=== PATIENT | female | born 1980 | race Caucasian/White ===

== ENCOUNTER 2020-02-18 11:27 | Emergency (ER) | payer SELFPAY ==
[~2020-02-18] VITALS: Ht 195.6 cm; Wt 99.0 kg
[2020-02-18] MEDS ORDERED: ONDANSETRON ODT 4 MG TAB.RAPDIS PO ONE (12:15)
[2020-02-18] MEDS ORDERED: ORPHENADRINE CITRATE 60 MG/2 ML VIAL. IM ONE (12:15)
[2020-02-18] MEDS ORDERED: BUTALB/APAP/CAFEIN 50/325/40MG TABLET. PO ONE (12:15)
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
[2020-02-18] MEDS ORDERED: BUTA1TAB23 PO (13:22)
[2020-02-18] MEDS ORDERED: ONDA4TAB12 PO (13:22)
[2020-02-18] MEDS ORDERED: ORPH-16 PO (13:22)
[2020-02-18 13:40] VITALS: BP 117/71
== END 2020-02-18 13:40 | disposition home or self-care (01) ==
LOC: ER 11:27
DX: S16.1XXA Strain of muscle, fascia and tendon at neck level, initial encounter (principal); F07.81 Postconcussional syndrome; F17.200 Nicotine dependence, unspecified, uncomplicated; Z88.5 Allergy status to narcotic agent; Y08.89XA Assault by other specified means, initial encounter; Y93.89 Activity, other specified; Y92.89 Other specified places as the place of occurrence of the external cause; Y99.8 Other external cause status
CPT/HCPCS: 70450; 72125; 96372; 99285; J2360; Q0162

== ENCOUNTER 2020-03-05 18:13 | Emergency (ER) | payer SELFPAY ==
[~2020-03-05] VITALS: Ht 165.1 cm; Wt 99.0 kg
[~2020-03-05 18:13] MED LIST: BUTA1TAB23 PO; ONDA4TAB12 PO; ORPH-16 PO
[2020-03-05 18:15] VITALS: BP 133/72
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
[2020-03-05] MEDS ORDERED: HYDROcodone/APAP 5/325MG 1 TAB TABLET PO ONE (18:45)
[2020-03-05] MEDS ORDERED: DIPH,PERTUSS(ACELL),TET VAC/PF 0.5 ML SYRINGE. VAX IM ONE (19:15)
--- NOTE | 2020-03-05 19:22 | RAD ---
STUDY: CT head and cervical spine without contrast INDICATION: Injury to the top of the head. COMPARISON: 02/18/2020 TECHNIQUE: Axial CT imaging through the head and cervical spine without the use of intravenous contrast. Sagittal and coronal reformats were obtained. One or more of the following individualized dose reduction techniques were utilized for this examination: 1. Automated exposure control 2. Adjustment of the mA and/or kV according to patient size 3. Use of iterative reconstruction technique. FINDINGS: CT head: No acute intracranial hemorrhage. Normal corona-white matter interface. No localized mass effect, midline shift or hydrocephalus. Scalp injury approaching the vertex with eunice. No associated depressed calvarial fracture. CT cervical spine: No acute fracture or traumatic malalignment. Redemonstrated degenerative changes greatest at C5-C6 more so than C6-C7. There is again a chronic focus of ossification along the right aspect of the C2 and C3 spinous processes with adjacent chronic deformity or developmental variation of the C2 posterior ring. No soft tissue sequela of trauma seen throughout the neck. Unremarkable thyroid. Mild paraseptal cystic change at the right lung apex. Advanced multifocal odontogenic disease. IMPRESSION: CT head: 1. Scalp injury approaching the vertex with stapling. No associated depressed calvarial fracture or acute intracranial abnormality by CT. CT cervical spine: 1. No acute fracture or traumatic malalignment. 2. No different from 02/18/2020 are degenerative changes greatest at C5-C6. 3. Multifocal odontogenic disease. Electronically signed by: ARMIDA MORLEY MD (03/05/2020 7:20 PM) [id number]
== END 2020-03-05 19:45 | disposition home or self-care (01) ==
LOC: ER 18:13
DX: S01.01XA Laceration without foreign body of scalp, initial encounter (principal); F17.210 Nicotine dependence, cigarettes, uncomplicated; F19.90 Other psychoactive substance use, unspecified, uncomplicated; Z90.89 Acquired absence of other organs; Z98.51 Tubal ligation status; Z88.5 Allergy status to narcotic agent; Z88.8 Allergy status to other drugs, medicaments and biological substances; W22.8XXA Striking against or struck by other objects, initial encounter; Y93.89 Activity, other specified; Y92.89 Other specified places as the place of occurrence of the external cause; Y99.0 Civilian activity done for income or pay
CPT/HCPCS: 12001; 70450; 72125; 90471; 90715; 99285

== ENCOUNTER 2020-03-14 17:31 | Emergency (ER) | payer OTHER ==
[~2020-03-14] VITALS: Ht 165.1 cm; Wt 99.0 kg
--- NOTE | 2020-03-14 18:11 | PHYS DOC ---
Past History Past Medical History: No Pertinent History, Other Additional Past Medical Histor: palpitations Past Surgical History: Tonsillectomy, Tubal ligation Smoking: Cigarettes Alcohol Use: None Drug Use: Methamphetamine Adult General Chief Complaint Chief Complaint: SUTURE/STAPLE REMOVAL [facility] Patient is a [age] year old female who presents with request to have her eunice removed, patient states that last she was at work and hit her head on L being causing a laceration to her scalp did not lose consciousness. Patient states she was seen here, patient states her tetanus was brought up-to-date, patient states that wound was cleansed and repaired here with eunice. Patient states that she had no problems with the eunice, and is here to have them removed. Patient denies any other complaints. Patient denies any headaches or focal weaknesses, patient denies any itching or any problems. Patient denies being exposed to the COVID-19 virus, patient does not wish to be tested today for the COVID-19 virus. Review of Systems Review of Systems Constitutional: Denies fever or chills Eyes: Denies change in visual acuity, redness, or eye pain Cardiovascular: No additional information not addressed in HPI [] Musculoskeletal: Denies back pain or joint pain [] Integument: Denies rash or skin lesions [] Neurologic: Denies headache, focal weakness or sensory changes [] All other systems were reviewed and found to be within normal limits, except as documented in this note. Allergies Allergies Allergies Coded Allergies Type Severity Reaction Last Updated Verified cephalexin Allergy Unknown 03/05/20 Yes codeine Allergy Unknown 02/18/20 Yes Physical Exam Physical Exam Constitutional: Well developed, well nourished, no acute distress, non-toxic appearance. HENT: Normocephalic, atraumatic, bilateral external ears normal, oropharynx moist, no oral exudates, nose normal. Eyes: PERRLA, EOMI, conjunctiva normal, no discharge. Neck: Normal range of motion, no tenderness, supple, no stridor. Cardiovascular:Heart rate regular rhythm, no murmur Lungs & Thorax: Bilateral breath sounds clear to auscultation Abdomen: Bowel sounds normal, soft, no tenderness, no masses, no pulsatile masses. Skin: Warm, dry, no erythema, no rash. Patient has three intact eunice on scalp, wound well-healed, edges approximated, no signs of infectious process. Back: No tenderness, no CVA tenderness. Extremities: No tenderness, no cyanosis, no clubbing, ROM intact, no edema. Neurologic: Alert and oriented X 3, normal motor function, normal sensory function, no focal deficits noted. Psychologic: Affect normal, judgement normal, mood normal. EKG EKG [] Radiology/Procedures Radiology/Procedures [] Heart Score Risk Factors: Risk Factors: DM, Current or recent (<one month) smoker, HTN, HLP, family history of CAD, obesity. Risk Scores: Risk Factors: DM, Current or recent (<one month) smoker, HTN, HLP, family history of CAD, obesity. Course & Med Decision Making Course & Med Decision Making Pertinent Labs and Imaging studies reviewed. (See chart for details) 39-year-old female presents emergency department for staple removal, patient had her eunice placed here this past , her tetanus was brought up-to-date last . Patient had no problems, today D examination revealed three eunice intact edges well approximated no signs of infection no purulent drainage wound was well-healed, eunice were removed by ED nursing staff, patient was discharged home without incident. Patient had no further questions or concerns. Dragon Disclaimer Dragon Disclaimer This electronic medical record was generated, in whole or in part, using a voice recognition dictation system. Departure Departure: Impression: Primary Impression: Removal of eunice Disposition: 01 DC HOME SELF CARE/HOMELESS Condition: GOOD Referrals: PCPADAM (PCP) Patient Instructions: Staple Removal, Care After Additional Instructions: Your wound looks well-healed, your eunice were removed today, return for worsening symptoms or other concerns. RANDAL REY APRN Mar 14, 2020 18:11
== END 2020-03-14 18:16 | disposition home or self-care (01) ==
LOC: ER 17:31
DX: S01.01XD Laceration without foreign body of scalp, subsequent encounter (principal); F17.210 Nicotine dependence, cigarettes, uncomplicated; Z88.1 Allergy status to other antibiotic agents; Z88.5 Allergy status to narcotic agent; X58.XXXD Exposure to other specified factors, subsequent encounter
CPT/HCPCS: 99281

== ENCOUNTER 2021-03-15 19:57 | Emergency (ER) | payer SELFPAY ==
[~2021-03-15] VITALS: Ht 165.1 cm; Wt 81.8 kg
--- NOTE | 2021-03-15 20:03 | PHYS DOC ---
Past History Past Medical History: No Pertinent History, Other Additional Past Medical Histor: palpitations Past Surgical History: Tonsillectomy, Tubal ligation Smoking: Cigarettes Alcohol Use: None Drug Use: Methamphetamine Adult General Chief Complaint Chief Complaint: NAUSEA/VOMITING/DIARRHEA HPI HPI Patient is a 40-year-old female, who states she is otherwise healthy who presents with a chief complaint of fatigue, body aches and fever at home to 101 for the last 2 days. States she is also had nasal congestion and nonproductive cough. States he is eating and drinking normally for her. States is making urine and stool normally for her. States she took some Tylenol earlier this morning. Denies recent traumas, travels, other illnesses, chest pain, shortness of breath, abdominal pain, vomiting. States she did have some nausea earlier which has resolved and some soft stools. Denies any trouble making urine no s tool denies any blood in either. Patient requesting Covid swab and work note. Review of Systems Review of Systems Review of systems otherwise unremarkable except noted in HPI Allergies Allergies Allergies Coded Allergies Type Severity Reaction Last Updated Verified cephalexin Allergy Unknown 03/05/20 Yes codeine Allergy Unknown 02/18/20 Yes Physical Exam Physical Exam Constitutional: Well developed, well nourished, no acute distress, non-toxic appearance. [] HENT: Normocephalic, atraumatic, bilateral external ears normal, oropharynx moist, no oral exudates, nose normal. [] Eyes: PERRLA, EOMI, conjunctiva normal, no discharge. [] Neck: Normal range of motion, no tenderness, supple, no stridor. [] Cardiovascular:Heart rate regular rhythm, no murmur [] Lungs & Thorax: Mild bilateral global rhonchi, no tachypnea or respiratory distress Abdomen: soft, no tenderness, no masses, no pulsatile masses. [] Skin: Warm, dry, no erythema, no rash. [] Back: No tenderness, no CVA tenderness. [] Extremities: No tenderness, no cyanosis, no clubbing, ROM intact, no edema. [] Neurologic: Alert and oriented X 3, no focal deficits noted. [] Psychologic: Affect normal, judgement normal, mood normal. [] EKG EKG [] Radiology/Procedures Radiology/Procedures [] Heart Score C/O Chest Pain: No Risk Factors: Risk Factors: DM, Current or recent (<one month) smoker, HTN, HLP, family history of CAD, obesity. Risk Scores: Risk Factors: DM, Current or recent (<one month) smoker, HTN, HLP, family history of CAD, obesity. Course & Med Decision Making Course & Med Decision Making Patient is a 40-year-old female who presents with concern for Covid given body aches, chills, fever, nasal congestion and cough Vital signs notable for fever. Physical exam noted above. Patient swab for Covid. Given cough medicine and ibuprofen. Patient took Tylenol before coming. Covid swab pending. Chest x-ray suggestive of right lower lobe pneumonia. Started on Levaquin in the ED. Gave education and quarantine instructions on Covid. Advised to follow-up in the morning with primary care physician. Advised to take antibiotics as prescribed. Gave symptom management for home. Gave return precautions to the ED. Patient grateful, verbalized understanding and agreed with plan of discharge. Dragon Disclaimer Dragon Disclaimer This electronic medical record was generated, in whole or in part, using a voice recognition dictation system. Departure Departure: Impression: Primary Impression: Viral syndrome Additional Impression: Pneumonia Disposition: HOME / SELF CARE / HOMELESS Condition: GOOD Referrals: PCPADAM (PCP) YINA REYEZ Patient Instructions: Viral Syndrome Additional Instructions: Thank you for coming into the emergency department tonight and allowing us to take care of you. Please read the attached information carefully to go back over some of the things we discussed. As we discussed you can swab for Covid and your results could take 24 to 48 hours to come back. Please follow quarantine procedures as we discussed. Please continue Tylenol, ibuprofen and sxqr-[id number] cough medicine as needed. You are given a work note for alan velazquez's visit. Please call your primary care physician in the morning to update on ED visit. Please come back with new or concerning symptoms as we discussed. You have been tested for or diagnosed with COVID-19. It is an infection caused by a new type of coronavirus. COVID-19 will cause cold-like or mild flu symptoms in most. It can cause more severe symptoms like problems breathing in some. There is no treatment for COVID-19. The body will clear the infection over time. Self-care will help to ease discomfort. Steps to Take: Self-Care Rest as needed. Healthy habits may help you feel better. Steps include: Choose healthy foods including fruits and vegetables. Drink water throughout the day. Get plenty of sleep each night. If you smoke, try to quit. It may ease breathing. Avoid alcohol. Keep Others Healthy The virus can spread to others. Droplets are released every time you sneeze or cough. The droplets can get into the mouth, nose, or eyes of people near you and lead to infection. To lower the chances of spreading COVID-19 to others: Stay at home until your doctor has said it is safe to leave. If you tested positive this will mean staying isolated until both of the following are true: At least 7 days have passed since the start of illness. You are free of fever for at least 72 hours without the use of medicine. During this time: - Avoid public areas, events, or transportation. Do not return to work or school until your doctor has said it is safe to do so. - Call ahead if you need to go to a medical center. Let them know you may have COVID-19. It will help them guide you where to go. They may also ask you to wear a facemask when you come to the office. - If you call for emergency medical services, let them know you may have COVID- 19. While at home: - Try to avoid close contact with others. Stay about 6 feet away. - If possible, spend most of your time in a separate room from others. - Use a face mask if you will be in close contact with others such as sharing a room or vehicle. - Have someone wipe down common surfaces in the home. Use household licensed embalmer every day on areas like doorknobs, counters, or sinks. - Cough or sneeze into a tissue. Throw the tissue away right after use. If a tissue is not available, cough or sneeze into your elbow. - Wash your hands often. Wash them after sneezing or coughing. Use soap and water and wash for at least 20 seconds. Alcohol based hand sanitation truck cleaner can be used if soap and water is not available. - Do not prepare food for others. Avoid sharing personal items like forks, spoons, or toothbrushes. - Avoid close contact with pets while you are sick. There is no evidence of the virus passing to pets. This is a safety step until more is known about this virus. Isolation can be frustrating. Social interaction can help. Keep in touch with friends and family through phone and tech options. You can still interact with others in you r home, just keep a safe distance of about 6 feet. Follow-up: Your doctors office will check in with you to see if there are any changes in your health. You may be asked to keep track of symptoms to share with them. They will also let you know when you are clear to be in public again. Problems to Look Out For: Contact your doctor if your recovery is not going as you expect. Get emergency care if you have problems such as: - Trouble breathing - Nonstop chest pain or pressure - Changes in awareness, confusion, or problems waking - Lips or face have bluish color - Worsening of symptoms If you think you have an emergency, call for emergency medical services right away. As taken from [facility] Levofloxacin (LEVOFLOXACIN) 500 Mg Tablet 1 TAB PO DAILY for PNA for 6 Days, #6 TAB Prov: TOYA BENTON MD 03/15/21 Problem Qualifiers TOYA BENTON MD Mar 15, 2021 20:03
[2021-03-15] MEDS ORDERED: guaiFENesin DM 200MG/20MG 10 ML SYRUP PO ONE (20:30)
[2021-03-15] MEDS ORDERED: ONDANSETRON 4MG ODT 4TABLET STARTPACK. PO ONE (20:30)
[2021-03-15] MEDS ORDERED: IBUPROFEN 600 MG TABLET. PO ONE (20:30)
[2021-03-15] MEDS ORDERED: LEVO500T9 PO (20:52)
[2021-03-15] MEDS ORDERED: levoFLOXacin 500 MG TABLET PO ONE (21:00)
[2021-03-15 21:06] VITALS: BP 110/75
--- NOTE | 2021-03-15 21:26 | RAD ---
Exam: Chest one view INDICATION: Cough, fever TECHNIQUE: Frontal view of the chest Comparisons: None FINDINGS: The cardiomediastinal silhouette and pulmonary vessels are within normal limits. Patchy right basilar airspace disease. No pleural effusion. IMPRESSION: Right patchy basilar airspace disease may be infectious or inflammatory in etiology. Electronically signed by: Amarjit Doyle MD (03/15/2021 9:24 PM) DENISE
== END 2021-03-15 21:10 | disposition home or self-care (01) ==
LOC: ER 19:57
DX: J18.9 Pneumonia, unspecified organism (principal); B34.9 Viral infection, unspecified; Z20.822 Contact with and (suspected) exposure to COVID-19; F17.210 Nicotine dependence, cigarettes, uncomplicated; Z88.1 Allergy status to other antibiotic agents; Z88.5 Allergy status to narcotic agent
CPT/HCPCS: 71045; 99284; C9803; Q0162; U0003

== ENCOUNTER 2021-05-26 22:03 | Emergency (ER) | payer SELFPAY ==
[~2021-05-26] VITALS: Ht 165.1 cm; Wt 77.3 kg
[~2021-05-26 22:03] MED LIST changes: +LEVO500T9 PO
[2021-05-26] MEDS ORDERED: START PACK - traMADol 1 STARTPACK TABLET PO ONE (22:30)
[2021-05-26] MEDS ORDERED: CLIN-95 PO (22:30)
[2021-05-26] MEDS ORDERED: CLINDAMYCIN HCL 150 MG CAPSULE PO ONE (22:30)
--- NOTE | 2021-05-26 22:30 | PHYS DOC ---
Past History Past Medical History: No Pertinent History, Other Additional Past Medical Histor: palpitations Past Surgical History: Tonsillectomy, Tubal ligation Smoking: Cigarettes Alcohol Use: None Drug Use: Methamphetamine General Adult EDM: Chief Complaint: DENTAL PROBLEM HPI: HPI: Patient is a 40-year-old female who presents today to the emergency department with dental pain. Patient has been seen multiple times for dental pain in the emergency department and continues to not get treatment for this tooth. She said that its only been hurting for about 2 days. Patient states she does not have a primary dentist. Review of Systems: Review of Systems: Constitutional: Denies fever or chills Eyes: Denies change in visual acuity HENT: Dental pain Respiratory: Denies cough or shortness of breath Cardiovascular: Denies chest pain or edema GI: Denies abdominal pain, nausea, vomiting, bloody stools or diarrhea : Denies dysuria Musculoskeletal: Denies back pain or joint pain Integument: Denies rash Neurologic: Denies headache, focal weakness or sensory changes Endocrine: Denies polyuria or polydipsia Lymphatic: Denies swollen glands Psychiatric: Denies depression or anxiety Current Medications: Current Meds: Current Medications Medications (Trade) Dose Ordered Sig/Nerissa Start Time Stop Time Status Last Admin Dose Admin Clindamycin HCl (Cleocin) 300 mg 1X ONCE 05/26/21 22:30 05/26/21 22:31 UNV Tramadol HCl (Starter Pack - Ultram) 1 startpack 1X ONCE 05/26/21 22:30 05/26/21 22:31 UNV Allergies: Allergies: Allergies Coded Allergies Type Severity Reaction Last Updated Verified Penicillins Allergy Unknown 05/26/21 Yes cephalexin Allergy Unknown 03/05/20 Yes codeine Allergy Unknown 02/18/20 Yes Physical Exam: PE: Constitutional: Well developed, well nourished, no acute distress, non-toxic appearance. [] HENT: Multiple daric dental caries noted in the mouth with multiple missing teeth, there is a broken tooth on the right upper jaw noted no drainage noted from the gumline. Eyes: PERRLA, EOMI, conjunctiva normal, no discharge. [] Neck: Normal range of motion, no tenderness, supple, no stridor. [] Cardiovascular:Heart rate regular rhythm, no murmur [] Lungs & Thorax: Bilateral breath sounds clear to auscultation [] Abdomen: Bowel sounds normal, soft, no tenderness, no masses, no pulsatile masses. [] Skin: Warm, dry, no erythema, no rash. [] Back: No tenderness, no CVA tenderness. [] Extremities: No tenderness, no cyanosis, no clubbing, ROM intact, no edema. [] Neurologic: Alert and oriented X 3, normal motor function, normal sensory function, no focal deficits noted. [] Psychologic: Affect normal, judgement normal, mood normal. [] EKG: EKG: [] Radiology/Procedures: Radiology/Procedures: [] Heart Score: C/O Chest Pain: N/A Risk Factors: Risk Factors: DM, Current or recent (<one month) smoker, HTN, HLP, family history of CAD, obesity. Risk Scores: Score 0 - 3: 2.5% MACE over next 6 weeks - Discharge Home Score 4 - 6: 20.3% MACE over next 6 weeks - Admit for Clinical Observation Score 7 - 10: 72.7% MACE over next 6 weeks - Early Invasive Strategies Course & Med Decision Making: Course & Med Decision Making Pertinent Labs and Imaging studies reviewed. (See chart for details) Patient was informed that she will need to follow-up with her dentist MARTA for treatment of this. Verbalized understanding J Carlos Disclaimer: J Carlos Disclaimer: This electronic medical record was generated, in whole or in part, using a voice recognition dictation system. Departure Departure: Impression: Primary Impression: Dental caries Disposition: HOME / SELF CARE / HOMELESS Condition: STABLE Referrals: PCP,NO (PCP) Patient Instructions: Dental Abscess Additional Instructions: Clindamycin 300 mg take as directed. Tramadol take 1 tablet every 6 hours as needed for severe pain [id number] Tylenol and/or ibuprofen as needed for pain as well. Call the emergency dentist [facility] when you get home and leave a message on the answering machine they will call you in the morning for a same-day appointment the number is [phone] they are located in [facility] Clindamycin Hcl (CLINDAMYCIN HCL) 300 Mg Capsule 1 CAP PO TID for dental pain, #30 CAP Prov: SHANICE TRAN GUARD IMMIGRATION 05/26/21 SHANICE TRAN GUARD IMMIGRATION May 26, 2021 22:30
[2021-05-26 22:45] VITALS: BP 137/77
== END 2021-05-26 22:45 | disposition home or self-care (01) ==
LOC: ER 22:03
DX: K02.9 Dental caries, unspecified (principal); F17.210 Nicotine dependence, cigarettes, uncomplicated; Z88.0 Allergy status to penicillin; Z88.1 Allergy status to other antibiotic agents; Z88.5 Allergy status to narcotic agent
CPT/HCPCS: 99283

== ENCOUNTER 2021-06-05 22:38 | Emergency (ER) | payer SELFPAY ==
[~2021-06-05] VITALS: Ht 165.1 cm; Wt 77.3 kg
[~2021-06-05 22:38] MED LIST changes: +CLIN-95 PO
--- NOTE | 2021-06-05 22:44 | PHYS DOC ---
Past History Past Medical History: No Pertinent History, Other Additional Past Medical Histor: Dental caries, Palpitations Past Surgical History: Tonsillectomy, Tubal ligation Smoking: Cigarettes Alcohol Use: Rarely Drug Use: Methamphetamine General Adult EDM: Chief Complaint: SKIN RASH/ABSCESS HPI: HPI: ".. I got a COVID shot...It was my second... and it is warm, some redness and tender.." Patient is a 40 year old female who presents with above hx and complaints right deltoid injection site being tender and somewhat warm. This is patient's second Covid vaccination. Patient denies any history of immunosuppression. No recent travel. No sick ill contacts. No adenopathy. No striations. Patient [id number]. Review of Systems: Review of Systems: Constitutional: Denies fever or chills Eyes: Denies change in visual acuity HENT: Denies nasal congestion or sore throat Respiratory: Denies cough or shortness of breath Cardiovascular: Denies chest pain or edema GI: Denies abdominal pain, nausea, vomiting, bloody stools or diarrhea : Denies dysuria Musculoskeletal: Denies back pain or joint pain. Complains of right deltoid inflammation from COVID second booster shot Integument: Denies rash Neurologic: Denies headache, focal weakness or sensory changes Endocrine: Denies polyuria or polydipsia Lymphatic: Denies swollen glands Psychiatric: Denies depression or anxiety Family History: Family History: Noncontributory presentation. Current Medications: Current Meds: See nursing for home meds Allergies: Allergies: Allergies Coded Allergies Type Severity Reaction Last Updated Verified Penicillins Allergy Unknown 05/26/21 Yes cephalexin Allergy Unknown 03/05/20 Yes codeine Allergy Unknown 02/18/20 Yes Physical Exam: PE: Constitutional: Well developed, well nourished, no acute distress, non-toxic appearance. [] HENT: Normocephalic, atraumatic, bilateral external ears normal, oropharynx moist, no oral exudates, nose normal. [] Eyes: PERRLA, EOMI, conjunctiva normal, no discharge. [] Neck: Normal range of motion, no tenderness, supple, no stridor. [] Cardiovascular:Heart rate regular rhythm, no murmur [] Lungs & Thorax: Bilateral breath sounds equal apex with no significant wheeze on auscultation [] Abdomen: Bowel sounds normal, soft, no tenderness, no masses, no pulsatile masses. [] Skin: Warm, dry, no erythema, no rash. [] Mild inflammation at injection site of second Covid vaccination right deltoid. Back: No tenderness, no CVA tenderness. [] Extremities: No tenderness, no cyanosis, no clubbing, ROM intact, no edema. [] Neurologic: Alert and oriented X 3, normal motor function, normal sensory function, no focal deficits noted. [] Psychologic: Affect anxious, judgement normal, mood normal. [] EKG: EKG: [] Radiology/Procedures: Radiology/Procedures: [] Heart Score: C/O Chest Pain: N/A Risk Factors: Risk Factors: DM, Current or recent (<one month) smoker, HTN, HLP, family history of CAD, obesity. Risk Scores: Score 0 - 3: 2.5% MACE over next 6 weeks - Discharge Home Score 4 - 6: 20.3% MACE over next 6 weeks - Admit for Clinical Observation Score 7 - 10: 72.7% MACE over next 6 weeks - Early Invasive Strategies Course & Med Decision Making: Course & Med Decision Making Pertinent Labs and Imaging studies reviewed. (See chart for details) Vice patient has stool within the normal range of vaccination reaction on second Covid vaccination. If concern may to use ice packs. May take Tylenol and ibuprofen for discomfort. Currently appears to be a excellent response to second vaccination. Local reaction is currently nonconcerning. Impression: 1. Localized immunization information-second Covid vaccination [] Dragon Disclaimer: Dragon Disclaimer: This electronic medical record was generated, in whole or in part, using a voice recognition dictation system. Departure Departure: Referrals: PCP,NO (PCP) Dragon Disclaimer This chart was dictated in whole or in part using Voice Recognition software in a busy, high-work load, and often noisy Emergency Department environment. It may contain unintended and wholly unrecognized errors or omissions. PABLO HOLT MD Jun 05, 2021 22:44
[2021-06-05 22:45] VITALS: BP 118/62
[2021-06-05] MEDS ORDERED: ONDANSETRON ODT 4 MG TAB.RAPDIS ONE ×2 (22:57→22:58)
[2021-06-05] MEDS ORDERED: ACETAMINOPHEN 500 MG TABLET PO ONE ×2 (23:28→23:45)
== END 2021-06-05 23:38 | disposition home or self-care (01) ==
LOC: ER 22:38
DX: L08.89 Other specified local infections of the skin and subcutaneous tissue (principal); T50.B95A Adverse effect of other viral vaccines, initial encounter; F17.210 Nicotine dependence, cigarettes, uncomplicated; Z88.0 Allergy status to penicillin; Z88.1 Allergy status to other antibiotic agents; Z88.5 Allergy status to narcotic agent; Y92.89 Other specified places as the place of occurrence of the external cause
CPT/HCPCS: 99282

== ENCOUNTER 2021-06-24 15:11 | Emergency (ER) | payer OTHER ==
[~2021-06-24] VITALS: Ht 165.1 cm; Wt 79.5 kg
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
[2021-06-24] MEDS ORDERED: DIPHTH,PERTUSS(ACELL),TET TOX 0.5 ML DISP.SYRIN. VAX IM ONE (16:15)
[2021-06-24 16:30] VITALS: BP 127/80
== END 2021-06-24 16:35 | disposition home or self-care (01) ==
LOC: ER 15:11
DX: S81.811A Laceration without foreign body, right lower leg, initial encounter (principal); M54.2 Cervicalgia; R07.89 Other chest pain; F17.210 Nicotine dependence, cigarettes, uncomplicated; Z88.0 Allergy status to penicillin; Z88.1 Allergy status to other antibiotic agents; Z88.5 Allergy status to narcotic agent; V49.59XA Passenger injured in collision with other motor vehicles in traffic accident, initial encounter; Y93.89 Activity, other specified; Y92.89 Other specified places as the place of occurrence of the external cause; Y99.8 Other external cause status
CPT/HCPCS: 12002; 70450; 71045; 72125; 90471; 90715; 99284